=== PATIENT | female | born 1935 | race Caucasian/White ===

== ENCOUNTER 2018-03-21 12:14 | Day surgery (SDC) | payer MEDICARE, OTHER ==
--- NOTE | 2018-03-13 13:59 | HP ---
AMENDED REPORT NOW INCLUDES DESIGNATED COSIGNER CC: Dr. Santana * PREOPERATIVE HISTORY AND PHYSICAL: DATE OF ADMISSION/SURGERY: 03/21/18 This patient is scheduled for same-day surgery admission by Dr. Noyola on 03/21. DATE OF EXAMINATION: 03/10/18 ATTENDING SURGEON: Rm Noyola MD * (dictated by Kimberly Zuniga NP) CHIEF COMPLAINT: Hernia. HISTORY OF PRESENT ILLNESS: The patient is an 82-year-old female recently evaluated by Dr. Noyola. She has a history of open appendectomy at age 7 and incisional hernia, suspected on annual [employer] exam by Dr. Whatley in October or November of this year. She was sent for CT of the abdomen and was noted to have Reese's-type hernia involving the cecum. She denies abdominal pain or nausea, vomiting or constipation. She has a good appetite. Dr. Noyola has reviewed the findings and examined the patient and discussed the findings with her and has recommended laparoscopic incisional hernia repair with mesh as a same-day surgery procedure. He discussed the nature of the surgical procedure, the rationale for the procedure, the relevant risks, benefits and alternatives , and today I reviewed the typical postoperative care and recovery. The patient has had a chance to ask questions and stated that she understands the information and is satisfied with the answers given to her questions. She will sign surgical consent on the day of surgery. PAST MEDICAL HISTORY: Is significant for hypertension; renal insufficiency with chronic right hydronephrosis and a history of kidney stones; hyperlipidemia and osteoarthritis. She also has a history of sinus arrhythmia with the most recent EKG in January [address] Santana's office. PAST SURGICAL HISTORY: Appendectomy at age 7, D and C, excision of breast cyst , and tonsillectomy. MEDICATIONS: 1. Metoprolol ER 25 mg p.o. daily in the morning. 2. Lisinopril 10 mg p.o. daily in the morning. 3. Hydrochlorothiazide 25 mg p.o. daily in the morning. 4. Vitamin D3 1000 units daily. ALLERGIES: SULFA ANTIBIOTICS cause rash. FAMILY HISTORY: Mother had a history of deep vein thrombosis and hypertension. Father had heart disease. No known anesthesia complications or bleeding tendencies. SOCIAL HISTORY: She is and is a nonsmoker and denies the use of alcohol or other substances. REVIEW OF SYSTEMS: Constitutional: No fevers or chills. No excessive fatigue or weight loss. Respiratory: No dyspnea on exertion. No chronic cough. Cardiovascular: No history of myocardial infarction; no chest pain or palpitations or pressure; she has a history of sinus arrhythmia and I reviewed an EKG from Dr. Santana's office in January 2018; she had an irregular heartbeat on exam today and an EKG will be done with her preadmission testing. Gastrointestinal: No nausea, vomiting, diarrhea, constipation or abdominal pain. No blood in the stool. Genitourinary: No dysuria. She does have a history of kidney stones and chronic right hydronephrosis with renal insufficiency. Musculoskeletal: Osteoarthritis in most joints, but she remains active around her home. Neurologic: No headache or blurred vision. No focal weakness or numbness. General: No previous anesthesia complications. No history of deep vein thrombosis or pulmonary embolism. No bleeding tendencies and has never received a blood transfusion. No history of MRSA. PHYSICAL EXAMINATION GENERAL SURVEY: The patient is an 83-year-old female, well developed, well nourished in no acute distress. VITAL SIGNS: Height 67 inches, weight 190 pounds, body mass index 29.8. Blood pressure 144/86, pulse 60 and irregular, respiratory rate 18, temperature 97.3 tympanic. HEENT: Benign. NECK: Supple. No lymphadenopathy. Trachea midline. LUNGS: Breath sounds bilaterally clear and equal. HEART: Irregularly irregular. ABDOMEN: Obese, soft, active bowel sounds, nontender throughout. Scar in right lower quadrant, no palpable masses. No organomegaly. PELVIC AND RECTAL: Exam deferred. EXTREMITIES: Warm without edema or skin ulceration. NEUROLOGIC: Alert and oriented x3. Steady gait. SKIN: Warm, dry, intact. IMPRESSION: Incisional hernia, right lower quadrant of the abdomen. PLAN: Same-day surgery admission to Dr. Noyola' service on 03/21/18 for laparoscopic incisional repair of the right lower quadrant abdominal hernia with mesh. KRISTI ZUNIGA NP [id number]/[facility] #: [id number] DIETER
[~2018-03-21 12:14] MED LIST: Buffered Lidocaine 0.9% SYRIN* 5 ML/SYR SYRINGE INTRADERM ONE; Dexamethasone IV* 4 MG/ML 1 ML (4 MG) IV SLOW PU ONE; Famotidine IV* 10 MG/ML 2 ML (20 mg) IV ONE; Lactated Ringers 1000 ML Bag* 1,000 ML IV SCH
[2018-03-21] MEDS ORDERED: Heparin VIAL(*) 5000 UNITS/ML VIAL (FIVE THOUSAND) ONE (12:52)
[2018-03-21] MEDS ORDERED: Famotidine IV* 10 MG/ML 2 ML (20 mg) ONE (12:52)
[2018-03-21] MEDS ORDERED: Dexamethasone IV* 4 MG/ML 1 ML (4 MG) ONE (12:52)
[2018-03-21] MEDS ORDERED: ceFAZolin 2 GM PREMIX in ORs 2 GM/50 ML BAG IVPB ONE (12:53)
[2018-03-21] MEDS ORDERED: Bupivacaine 0.25% W/EPI* 10 ML SDV ONE (14:03)
[2018-03-21] MEDS ORDERED: Sugammadex * 200 MG/2 ML VIAL IV PUSH ONE (14:08)
[2018-03-21] MEDS ORDERED: fentaNYL* 50 MCG/ML 2 ML VIAL (100 MCG VIAL) ONE (14:12)
[2018-03-21] MEDS ORDERED: Succinylcholine* 20 MG/ML 10 ML VIAL ONE (14:12)
[2018-03-21] MEDS ORDERED: Propofol* 10 MG/ML 20 ML BTL ONE (14:12)
[2018-03-21] MEDS ORDERED: Lidocaine 2% PF * 5 ML VIAL ONE (14:12)
[2018-03-21] MEDS ORDERED: Rocuronium* 10 MG/ML VIAL ONE (14:14)
[2018-03-21] MEDS ORDERED: Naloxone* 0.4 MG/ML 1 ML VIAL IV PRN (15:43)
[2018-03-21] MEDS ORDERED: DiMENhydriNATE IV* 50 MG/ML VIAL IV PUSH PRN (15:43)
[2018-03-21] MEDS ORDERED: fentaNYL* 50 MCG/ML 2 ML VIAL (100 MCG VIAL) IV PRN (15:43)
[2018-03-21] MEDS ORDERED: Ondansetron INJ* 2 MG/ML VIAL ONE (16:23)
[2018-03-21] MEDS ORDERED: Ketorolac INJ* 30 MG/ML 1 ML VIAL ONE (16:23)
[2018-03-21 18:21] VITALS: BP 140/76
--- NOTE | 2018-03-21 22:03 | OP ---
DATE OF OPERATION: 03/21/18 - [facility] DATE OF : 33 SURGEON: Rm Noyola MD SCRAP DROP CRANE OPERATOR: Paulina Cruz NP ANESTHESIOLOGIST: Dr. Richards. ANESTHESIA: General endotracheal. PRE-OP DIAGNOSIS: Ventral incisional hernia. POST-OP DIAGNOSIS: Right inguinal hernia. OPERATIVE PROCEDURE: Laparoscopic preperitoneal repair of right inguinal hernia with mesh via transabdominal approach (MICHELINE). ESTIMATED BLOOD LOSS: Minimal. IV FLUIDS: Crystalloids. SPECIMENS: None. DRAINS: None. COMPLICATIONS: None. COUNTS: The instrument, needle, and sponge counts were correct. DESCRIPTION OF PROCEDURE: The patient was brought to the operating room and placed on the table supine. Sequential compression devices were placed on both lower extremities. General anesthesia was administered. Padilla catheter was placed. She was positioned and padded appropriately. She received appropriate intravenous antibiotics. She was prepped and draped in the usual sterile fashion. A time-out was performed. Local anesthetic was infiltrated into the skin and soft tissue prior to making each incision. Pneumoperitoneum was established via a transumbilical placement of the Veress needle and after insufflating the abdomen with carbon dioxide to a pressure of 15 mmHg, 5-mm trocar was placed in the left upper quadrant laterally. Inspection with laparoscope revealed extensive adhesions of omentum to the abdominal wall with no evidence of adhesions in the left lateral midabdomen where a second 5-mm trocar was placed and then inspection in the left lower quadrant found a clear space where a third 5-mm trocar was placed. Using a combination of sharp dissection and blunt dissection as well as LigaSure , an adhesiolysis was performed to completely free the anterior abdominal wall of the omental adhesions. There was then identified an indirect right inguinal hernia. There was no evidence of incisional hernia at the patient's prior appendectomy site. It was determined that this would be repaired using a transabdominal preperitoneal approach to the inguinal hernia. A 4th 5 mm size trocar was placed in the infraumbilical midline and the initial 5-mm trocar in the left upper quadrant was replaced with a 12-mm trocar in order to place the mesh. First, the peritoneum was scored above the inguinal region transversely and the preperitoneal dissection was performed bluntly dissecting out the sac and identifying the round ligament, the uterus, as well as the inferior epigastric vessels on the right side. The round ligament was divided as it exited through the groin. The epigastric vessels were preserved. The dissection proceeded laterally to the anterior superior iliac spine and medially to the pubic symphysis. After completing the dissection, a repair was performed with a piece of polypropylene mesh. This was cut from a 6 x 6 inch piece of mesh and measured 4 x 6 inches. The mesh was trimmed at the corners in order to customize the sit of the mesh to the area of dissection while it was in position. After assuring good coverage of the hernia space, the mesh was secured to Gamal's ligament with a capture device as well as to the anterior abdominal wall medially and laterally staying well above the inguinal ligament. Then, the peritoneum was closed with serial placement of endoscopic clips until the mesh was completely covered. Next, the carbon dioxide was released from the abdomen and the ports were removed under direct visualization. The incisions were all closed with 4-0 Monocryl in a subcuticular fashion. Steri-Strips were applied. The patient tolerated the procedure well. She was extubated and transferred to Recovery Room in stable condition. [id number]/[facility] #: [id number] DIETER
== END 2018-03-21 18:54 | disposition home or self-care (01) ==
LOC: OR 12:14
PROVIDERS: ATTEND Surgery
DX: K40.90 Unilateral inguinal hernia, without obstruction or gangrene, not specified as recurrent (principal); I10 Essential (primary) hypertension; E78.5 Hyperlipidemia, unspecified; M19.90 Unspecified osteoarthritis, unspecified site
CPT/HCPCS: 36415; 84132; C1781; J0330; J0690; J1100; J1644; J1885; J2405; J2704; J3010

== ENCOUNTER 2018-07-12 09:40 | Observation (INO) | payer MEDICARE, OTHER ==
--- NOTE | 2018-07-12 10:24 | ED ---
Back Pain - HPI Summary HPI Summary: Pt is an 83 y/o F presenting to the ED with a chief complaint of R flank pain onset 07/10/18. The pain is located mainly in her R lower back, is intermittent in severity, and she reports associated urinary frequency, urgency, decreased appetite, and diffuse abd pain. She also reports some rhinorrhea, congestion, sore throat, and productive cough. She denies dysuria or burning with urination, as well as fever, nausea, vomiting , diarrhea, constipation, CP, SOB, rash, edema, AGUILAR, or weakness. She has hx of a prolapsed bladder, and she sees Dr. Benavides. - History of Current Complaint Chief Complaint: EDFlankPain Stated Complaint: BACK/FLANK PAIN PER PT Time Seen by Provider: 07/12/18 09:58 Hx Obtained From: Patient Onset/Duration: Gradual Onset, Lasting Days, Still Present Onset/Duration: Started Days Ago, Still Present Timing: Constant, Lasting Days Back Pain Location: Is Diffuse - R lower back to R lower abd Severity Initially: Moderate Severity Currently: Moderate Pain Intensity: 8 Pain Scale Used: 0-10 Numeric Character: Aching Aggravating Symptom(s): Nothing Alleviating Symptom(s): Nothing Associated Signs And Symptoms: Positive: Abdominal Pain, Flank Pain. Negative: Swelling, Fever, Weakness - Allergies/Home Medications Allergies/Adverse Reactions: Allergies Allergy/AdvReac Type Severity Reaction Status Date / Time Sulfa (Sulfonamide Allergy Rash Verified 07/12/18 15:43 Antibiotics) ENVIRONMENTAL/SEASONAL Allergy Sneezing Uncoded 07/12/18 15:43 ALLERGIES PMH/Surg Hx/FS Hx/Imm Hx Previously Healthy: Yes Endocrine/Hematology History: Denies: Hx Diabetes, Hx Thyroid Disease Cardiovascular History: Reports: Hx Coronary Artery Disease - CHOLESTEROL CONTROL WITH MEDICATION, Hx Hypertension, Other Cardiovascular Problems/ Disorders - Hyprelipidemia Denies: Hx Congestive Heart Failure Respiratory History: Denies: Hx Asthma, Hx Chronic Obstructive Pulmonary Disease (COPD), Other Respiratory Problems/Disorders GI History: Reports: Hx Hiatal Hernia, Other GI Disorders - Appendectomy-age 7 Denies: Hx Ulcer History: Reports: Hx Kidney Stones - BILATERAL SIDES, RIGHT GREATER THAN LEFT , Other Problems/Disorders - Stress incontinence Denies: Hx Renal Disease Musculoskeletal History: Reports: Hx Arthritis - knees, generalized, Other Musculoskeletal History - Incisional hernia, lower back discomfort Sensory History: Reports: Hx Cataracts - Bilateral extractions, Hx Contacts or Glasses - GLASSES Denies: Hx Glaucoma, Hx Hearing Aid Opthamlomology History: Reports: Hx Cataracts - Bilateral extractions, Hx Contacts or Glasses - GLASSES Denies: Hx Glaucoma Neurological History: Denies: Other Neuro Impairments/Disorders Psychiatric History: Reports: Hx Anxiety - situational anxiety - Cancer History Hx Chemotherapy: No Hx Radiation Therapy: No - Surgical History Surgery Procedure, Year, and Place: Appendectomy- age 7. Tonsillectomy. D&C. Colposcopy. Colonoscopy x2 Hx Anesthesia Reactions: No Infectious Disease History: No Infectious Disease History: Denies: Hx Clostridium Difficile, Hx Hepatitis, Hx Human Immunodeficiency Virus (HIV), Hx of Known/Suspected MRSA, Hx Shingles, Hx Tuberculosis, Hx Known/ Suspected VRE, Hx Known/Suspected VRSA, History Other Infectious Disease, Traveled Outside the [place] in Last 30 Days - Family History Known Family History: Negative: Cardiac Disease - Social History Alcohol Use: None Hx Substance Use: No Substance Use Type: Reports: None Hx Tobacco Use: No Smoking Status (MU): Never Smoked Tobacco Review of Systems Negative: Fever Positive: Sore Throat, Nasal Discharge Negative: Chest Pain Positive: Cough. Negative: Shortness Of Breath Positive: Abdominal Pain. Negative: Vomiting, Diarrhea, Nausea, Other - constipation Positive: frequency, flank pain, urgency. Negative: burning, dysuria Negative: Edema Negative: Rash Negative: Headache, Weakness All Other Systems Reviewed And Are Negative: Yes Physical Exam - Summary Physical Exam Summary: Constitutional: Well-developed, Well-nourished, Alert. (-) Distressed Skin: Warm, Dry HENT: Normocephalic; Atraumatic Eyes: Conjunctiva normal Neck: Musculoskeletal ROM normal neck. (-) JVD, (-) Stridor, (-) Tracheal deviation Cardio: Rhythm regular, rate normal, Heart sounds normal; Intact distal pulses; The pedal pulses are 2+ and symmetric. Radial pulses are 2+ and symmetric. (-) Murmur Pulmonary/Chest wall: Effort normal. (-) Respiratory distress, (-) Wheezes, (-) Rales Abd: Soft, (+) R CVA tenderness and RLQ tenderness, (-) Distension, (-) Guarding , (-) Rebound Musculoskeletal: (-) Edema Lymph: (-) Cervical adenopathy Neuro: Alert, Oriented x3 Psych: Mood and affect Normal Triage Information Reviewed: Yes Vital Signs On Initial Exam: Initial Vitals Temp Pulse Resp BP Pulse Ox 98.9 F 97 19 176/88 97 07/12/18 09:50 07/12/18 09:50 07/12/18 09:50 07/12/18 09:50 07/12/18 09:50 Vital Signs Reviewed: Yes Diagnostics - Vital Signs Vital Signs Temp Pulse Resp BP Pulse Ox 07/12/18 09:50 98.9 F 97 19 176/88 97 - Laboratory Result Diagrams: 07/12/18 10:21 07/12/18 10:21 Lab Statement: Any lab studies that have been ordered have been reviewed, and results considered in the medical decision making process. - CT CT a/p CT Interpretation Completed By: Radiologist Summary of CT Findings: 1. While the magnitude of severe RIGHT hydroureteronephrosis of the RIGHT kidney appears chronic the perinephric and periureteral inflammatory stranding is new raising concern for potential pyelonephritis. No obstructing stone or neoplastic lesion evident. The pessary in the vagina may contribute to obstruction of the RIGHT ureterovesicular junction. 2. Pelvic ultrasound suggested for further assessment of the LEFT ovarian lesion. 3. Chest CT suggested for further assessment given partial visualization of a RIGHT middle lobe nodule. ED physician has reviewed this report. Re-Evaluation - Re-Evaluation 1st re-eval Re-Evaluation Time: 12:15 Change: Unchanged Comment: Results discussed w/ patient, sepsis fluids ordered. Back Pain Course/Dx - Course Course Of Treatment: Pt is an 83 y/o F presenting to the ED with a chief complaint of R-sided flank pain that is intermittent in severity and has lasted since 07/10/18. She reports associated urinary frequency, urgency, decreased appetite, and diffuse R-sided abd pain. She denies dysuria or burning with urination, as well as fever, nausea, vomiting, diarrhea, constipation, CP, SOB, rash, edema, AGUILAR, or weakness. Upon physical exam, the pt has RLQ tenderness and R CVA tenderness. The pt's UA shows a UTI that I started the pt on Rocephin for. CT a/p shows: 1. While the magnitude of severe RIGHT hydroureteronephrosis of the RIGHT kidney appears chronic the perinephric and periureteral inflammatory stranding is new raising concern for potential pyelonephritis. No obstructing stone or neoplastic lesion evident. The pessary in the vagina may contribute to obstruction of the RIGHT ureterovesicular junction. 2. Pelvic ultrasound suggested for further assessment of the LEFT ovarian lesion. 3. Chest CT suggested for further assessment given partial visualization of a RIGHT middle lobe nodule. Pts bloodwork shows WBC of 11.4, and RBC of 5.16. Her chemistry shows potassium of 3.2, chloride of 99, BUN/ Creatinine ratio of 20.8, bilirubin of 1.20, CRP of 80.94, lipase of <10, and a lactic acid of 2.4. Sepsis fluids ordered. I spoke with Dr. Benavides who recommended NPO and a ureter stent that will be placed after 5pm. I then spoke with Dr. Sampson who [place] [facility] [place]el[place] and [place]. - Diagnoses Provider Diagnoses: Pyelonephritis, Sepsis Discharge - Sign-Out/Discharge Documenting (check all that apply): Patient Departure - Discharge Plan Condition: Stable Disposition: ADMITTED TO [facility] - Billing Disposition and Condition Condition: STABLE Disposition: Admitted to [facility] - Attestation Statements Document Initiated by Scribe: Yes Documenting Scribe: Gracie Wilde Provider For Whom Kimmy is Documenting (Include Credential): Adele Mendoza MD. Scribe Attestation: IGracie, scribed for Adele Quick MD. on 07/12/18 at 2150. Scribe Documentation Reviewed: Yes Provider Attestation: The documentation as recorded by the scribe, Gracie Wilde accurately reflects the service I personally performed and the decisions made by me, Adele Quick MD. Status of Scribe Document: Viewed Consult Consult: 1310 - I spoke with Dr. Benavides about the pt's present condition. He stated she should stay NPO, and they will put a stent in after 5pm. I spoke with Dr. Sampson at 1318 about the pt's condition who will be accepting the [place] [facility] [place]
[2018-07-12 10:44] LABS: Urine Appearance Turbid; Urine Bacteria Absent (Absent); Urine Bilirubin Negative (Negative); Urine Blood 1+ (Negative); Urine Color Amber; Urine Glucose 1+(50 mg/dL) (Negative); Urine Ketones Trace (Negative); Urine Nitrite Negative (Negative); Urine Protein 3+(>=500 mg/dL) (Negative); Urine Red Blood Cell 3+(>10/hpf) (Absent); Urine Specific Gravity 1.023 (1.010-1.030); Urine Squamous Epithelial Cell Present (Absent); Urine Urobilinogen Negative (Negative); Urine White Blood Cell 3+(>20/hpf) (Absent)
[2018-07-12] MEDS ORDERED: cefTRIAXone(*) 1 GM in NS 0.9% 50 ML* 50 ML IVPB ONE (11:10)
[2018-07-12 11:34] LABS: ALT 22 U/L (7-52); AST 23 U/L (13-39); Albumin 4.1 g/dL (3.2-5.2); Albumin/Globulin Ratio 1.2 (1-3); Alkaline Phosphatase 97 U/L (34-104); Anion Gap 13 mmol/L (2-11); BUN/Creatinine Ratio 20.8 (8-20); Blood Urea Nitrogen 15 mg/dL (6-24); C Reactive Protein 80.94 mg/L (<8.01); CO2 Carbon Dioxide 26 mmol/L (22-32); Calcium 9.6 mg/dL (8.6-10.3); Chloride 99 mmol/L (101-111); EGFR African American 93.4 (>60); EGFR Non-African American 77.2 (>60); Globulin 3.3 g/dL (2-4); Glucose 166 mg/dL (70-100); Potassium 3.2 mmol/L (3.5-5.0); Sodium 138 mmol/L (135-145); Total Protein 7.4 g/dL (6.4-8.9)
[2018-07-12 11:45] LABS: ABS Basophils 0 10^3/ul (0-0.2); ABS Eosinophils 0 10^3/ul (0-0.6); ABS Lymphocytes 0.9 10^3/ul (1.0-4.8); ABS Monocytes 0.8 10^3/ul (0-0.8); ABS Neutrophils 9.7 10^3/ul (1.5-7.7); ABS Nucleated RBC 0 10^3/ul; Eosinophil % 0.1 %; Hematocrit 44 % (35-47); Hemoglobin 14.9 g/dL (12.0-16.0); Lymphocyte % 7.5 %; Mean Corpuscular HGB Conc 34 g/dL (31-36); Mean Corpuscular Hemoglobin 29 pg (27-31); Mean Corpuscular Volume 86 fL (80-97); Mean Platelet Volume 9.1 fL (7.4-10.4); Nucleated Red Blood Cells % 0.3; Platelet Count 248 10^3/uL (150-450); Red Blood Count 5.16 10^6 /uL (3.70-4.87); Red Cell Distribution Width 13 % (10.5-15); White Blood Count 11.4 10^3/uL (3.5-10.8)
[2018-07-12] MEDS ORDERED: ED Piperacillin/Tazobac 3.375 3.375 GM/100 ML PREMIX.SET IVPB ONE (12:01)
[2018-07-12] MEDS ORDERED: Potassium Chlor TAB* 20 MEQ TAB.ER PO ONE (12:02)
[2018-07-12] MEDS: NS 0.9% 1000 ML** 1,000 ML IV.FLUID IV ONE ×2 (12:29→13:59)
[2018-07-12] MEDS ORDERED: Zosyn 3.375 GM IV - ED ONCE IVPB ONE ×2 (13:00)
[2018-07-12] MEDS ORDERED: Ondansetron INJ* 2 MG/ML VIAL IV PRN ×2 (14:42→18:05)
[2018-07-12] MEDS ORDERED: Acetaminophen TAB* 325 MG PO PRN (14:42)
[2018-07-12] MEDS: Lactated Ringers 1000 ML Bag* 1,000 ML IV SCH (15:20)
[2018-07-12] MEDS ORDERED: fentaNYL* 50 MCG/ML 2 ML VIAL (100 MCG VIAL) ONE (16:16)
[2018-07-12] MEDS ORDERED: Dexamethasone IV* 4 MG/ML 1 ML (4 MG) ONE (16:16)
[2018-07-12] MEDS ORDERED: Ondansetron INJ* 2 MG/ML VIAL ONE (16:16)
[2018-07-12] MEDS ORDERED: Propofol* 10 MG/ML 20 ML BTL ONE (16:16)
[2018-07-12] MEDS ORDERED: Midazolam* 1 MG/ML 5 ML VIAL (5 MG) ONE (16:16)
[2018-07-12] MEDS ORDERED: Lidocaine 2% PF * 5 ML VIAL ONE (16:16)
[2018-07-12] MEDS ORDERED: Iohexol 180 (CONTRAST) 10 ML SDV IV ONE (17:14)
--- NOTE | 2018-07-12 17:16 | HP ---
CC: Dr. Santana; Dr. Juan Manuel Benavides * ADMISSION HISTORY AND PHYSICAL: DATE OF ADMISSION: 07/12/18 PRIMARY CARE PROVIDER: Dr. Santana. MY ATTENDING WHILE IN THE HOSPITAL: Dr. Linda Sampson.* (DICTATED BY ARTEM WOODS) CONSULTING UROLOGIST: Dr. Juan Manuel Benavides. CHIEF COMPLAINT: Urinary frequency, right flank pain x2 days. HISTORY OF PRESENT ILLNESS: Ms. Pablo is an 83-year-old female with past medical history significant for hypertension, chronic right-sided hydronephrosis , nephrolithiasis as well as well bladder prolapse, who presents to the emergency department with 2 days of extreme urinary frequency and right-sided flank pain, which she rates as severe and radiating down into her groin. The patient states this feels as when she previously had a renal stone. The patient denies blood in her urine. The patient states her urine is more white than normally it is. The patient states that she has been urinating a small amount each time and estimates she does not have a decrease in the overall frequency of her urination. The patient denies nausea, vomiting, fevers, chills , chest pain, shortness of breath. The patient denies diarrhea, blood in her stools. The patient denies dizziness on standing. The patient has not had a UTI in several years. The patient states that she has a pessary inserted, but that she did not know that was still present, but believes that she had it removed by her [facility] approximately 4 months ago. She states she usually has it removed about every 4 months. The patient has undergone numerous surgeries without complications in the past. The patient has chronic swelling in her legs , which is unchanged from her history. The patient had an elevated lactic acid and due to concern for pyelonephritis with sepsis, we were asked to evaluate the patient for admission to the hospital. PAST MEDICAL HISTORY: Hypertension, chronic right-sided hydronephrosis, hyperlipidemia, history of nephrolithiasis, obstructive sleep apnea. PAST SURGICAL HISTORY: Right inguinal hernia repair in 2018, dilation and curettage, appendectomy, breast lump excision. MEDICATIONS: 1. Metoprolol 25 mg p.o. daily. 2. Lisinopril 10 mg p.o. daily. 3. Vitamin D 1000 units p.o. daily. 4. Hydrochlorothiazide 25 mg p.o. daily. 5. Potassium chloride 1 tab p.o. q.a.m., unknown dosage. ALLERGIES: Possible allergy to SULFA ANTIBIOTICS. FAMILY HISTORY: The patient's mother in her 90s of blood clot. The patient's father of an ND at age 86. The patient has a brother, who has no known medical history. SOCIAL HISTORY: The patient smoked a very few cigarettes long time ago. The patient denies ever abusing alcohol, has never used illicit drugs. 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 The patient is , has 2 sons. Her surrogate decision maker will be her , Urban Pablo or her sons, Abundio or Juan Pablo. REVIEW OF SYSTEMS: A 14-point review of systems was reviewed and is negative except as above in the HPI. PHYSICAL EXAMINATION GENERAL: The patient is an 83-year-old female, who appears younger than stated age and sitting comfortably in bed, in no acute distress. VITAL SIGNS: At the time of evaluation, temperature 98.9, pulse rate 91, respiratory rate 19, oxygen saturation 94% on room air, blood pressure 135/78. HEENT: Head: Normocephalic, atraumatic. Sclerae anicteric. No conjunctival injection. Nasal mucosa moist. Oral mucosa moist. No pharyngeal erythema, discharge, or exudate. NECK: Supple, nontender. No lymphadenopathy. No carotid bruits auscultated. No JVD. RESPIRATORY: Clear to auscultation bilaterally. No wheezes, rales, or rhonchi. Good air exchange bilaterally. CARDIAC: Regular rate and rhythm. No clicks, murmurs, gallops, or rubs. Pulses are 2+ in the bilateral dorsalis pedis, posterior tibialis, and radial areas. ABDOMEN: Soft, nondistended. Tenderness to palpation in the right lower quadrant. GENITOURINARY: Right-sided CVA tenderness. No suprapubic tenderness. NEURO: Cranial nerves II through XII intact. No focal deficits. Alert and oriented x3. PSYCHIATRIC: Pleasant and cooperative. SKIN: Clean, dry, and intact. No rash. DIAGNOSTIC STUDIES/LAB DATA: White blood cell count 11.4, hemoglobin 14.9, platelet count 248. Sodium 138, potassium 3.2, chloride 99, carbon dioxide 26, anion gap 13, BUN 15, creatinine 0.72, glucose 166. Lactic acid 2.4, repeat 1.2. Calcium 9.3. Bilirubin 1.3, AST 23, ALT 22, alkaline phosphatase 97. CRP 80.94. Protein 7.4, albumin 4.1, globulin 3.3. Lipase less than 10. Urine is cele, turbid, 3+ protein, positive ketones, positive blood, positive leukocyte esterase, negative nitrites, 3+ white blood cells, 3+ red blood cells, squamous epithelial cells and glucose present, bacteria absent. Studies: Abdomen and pelvis CT read as while the magnitude of severe hydronephrosis of the right kidney appears chronic, the perinephric and periureteral inflammatory stranding is new raising concern for potential pyelonephritis. No obstructing stone or neoplastic lesion evident. The pessary in the vagina may contribute to obstruction of the right ureterovesical junction. Pelvic ultrasound is suggested for further assessment of the left ovarian lesion. Chest CT suggested further assessment given partial visualization of the right middle lobe nodule. ASSESSMENT AND PLAN: Impression: Ms. Pablo is an 83-year-old female with past medical history significant for hypertension, chronic right-sided hydronephrosis , nephrolithiasis, who presents to the emergency department with 2 days of right - sided flank pain as well as severe urinary frequency, who was found to have an elevated lactic acid, elevated white blood cell count and CT evidence of pyelonephritis, who will be admitted to the hospital for stent insertion for her hydronephrosis and pyelonephritis treatment with antibiotics. 1. Pyelonephritis. The patient has a history of urinary tract infection with no stones. The patient has an elevated white blood cell count, elevated lactic acid, which has now normalized. The patient has a urinalysis consistent with infection. The patient was given a dose of Zosyn in the emergency department. The patient will be continued on ceftriaxone at this time. The patient has no fevers. The patient's tachycardia is improved with fluids. The patient's blood pressure is within normal limits. 2. Severe sepsis. The patient meets criteria for severe sepsis with an underlying urinary tract infection as well as elevated lactic acid. The patient is currently perfusing well. The patient's vital signs are within normal limits. The patient's repeat lactic acid is within normal limits. Please consider this to be the patient's severe sepsis reassessment note. 3. Chronic hydronephrosis. 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 This may be exacerbated by the presence of her pessary. The patient will not have her pessary removed at this time as she will have a stent placed for her right hydronephrosis given her pyelonephritis. The patient will be seen in consultation by Urology. The patient will be n.p.o. for this procedure. The patient has an RCRI of 0 and is a low risk for this low-risk procedure. The patient is medically optimized at this time with no further testing. 4. Hypertension. Continue the patient's home hypertensive medications tomorrow morning as they are normally scheduled. 5. Pulmonary nodule. The patient has a pulmonary nodule noted on the CT scan. The patient should follow up with her primary care provider for monitoring outpatient. 6. Ovarian cyst. The patient has a stable ovarian cyst. The patient should follow up with [facility] for the appropriateness of further evaluation of this cyst. 7. DVT prophylaxis: The patient will have heparin subcu. 8. FEN: The patient will be n.p.o. at this time. The patient will have a regular unrestricted diet after that time. 9. Code status: The patient would like to be a full code. TIME SPENT: Approximately 60 minutes was spent on the admission of this patient , 30 of which was spent [id number] with the patient obtaining history and physical and discussing treatment plan. This plan was discussed with my attending, Dr. Linda Sampson, and she is in agreement. ARTEM WOODS [id number]/CPS #: [id number] DIETER
[2018-07-12] MEDS ORDERED: Phenylephrine 40 MCG/ML SYRINGE ONE (17:49)
[2018-07-12] MEDS ORDERED: Naloxone* 0.4 MG/ML 1 ML VIAL IV PRN (18:05)
[2018-07-12] MEDS ORDERED: fentaNYL* 50 MCG/ML 2 ML VIAL (100 MCG VIAL) IV PRN (18:05)
[2018-07-12] MEDS: Heparin VIAL(*) 5000 UNITS/ML VIAL (FIVE THOUSAND) SUBCUT SCH (20:56)
--- NOTE | 2018-07-12 23:26 | OP ---
DATE OF OPERATION: 07/12/18 - ROOM #410 DATE OF : 33 SURGEON: Juan Manuel Benavides MD ANESTHESIOLOGIST: Dr. González Treviño. ANESTHESIA: General. PRE-OP DIAGNOSES: 1. Urinary tract infection. 2. Chronic right ureterovesical junction obstruction. 3. Severe right hydroureteronephrosis due to above. POST-OP DIAGNOSES: 1. Urinary tract infection. 2. Chronic right ureterovesical junction obstruction. 3. Severe right hydroureteronephrosis due to above. OPERATIVE PROCEDURE: 1. Cystoscopy. 2. Right retrograde pyelography. 3. Right ureteral stent insertion 8-Puerto Rican. INDICATION FOR PROCEDURE: Mrs. 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 The condition had been asymptomatic and did not require any treatment. She also has history of renal calculus disease. The patient presented to the emergency room today with 1-day history of right flank pain radiating to the right lower quadrant. She had a low- grade fever. Work-up in the emergency room showed moderate elevation of her white count, infected urine, and an elevated C-reactive protein and slight elevation of the lactic acid. Because of the concern about the urinary tract infection associated with the right flank pain and the severe hydronephrosis and to avoid any pyonephrosis, decision was made to urgently place a right ureteral stent. The patient is known to have a pessary for pelvic relaxation and prolapse. PATHOLOGY AT CYSTOSCOPY: There was distortion of the base of the bladder and the trigone because of the chronic pessary. There was also a moderate degree of edema and hyperemia of the posterior bladder neck and the trigone. There was some difficulty locating the right ureteral orifice due to the distortion of the anatomy from the pessary. Upon right retrograde pyelography, there was severe hydroureter with 360 degree loop of the proximal ureter and severe right hydronephrosis. The urine from the right kidney did not look infected. DESCRIPTION OF PROCEDURE: After successful general anesthesia, the patient was placed in the lithotomy position and was prepped and draped for a cystoscopy. Cystoscopy was performed. The bladder was inspected and the above findings were noted. After several attempts, the right ureteral orifice was identified and a glidewire was introduced into the right orifice and was negotiated through the tortuosity of the ureter and successfully introduced in the renal pelvis. The tortuosity of the ureter could not be straightened up with the stiff portion of the guidewire. The open-ended catheter was then fed on top of the glidewire and positioned in the proximal end of the ureteral loop. The glidewire was then removed and the guidewire introduced inside the open-ended catheter and successfully positioned in the renal pelvis. A size 8-Puerto Rican stent , 32-cm long was then fed on top of the guidewire and successfully positioned with the proximal end coiling in the renal pelvis and the distal end coiling inside the bladder. There was noted drainage of contrast from the kidney and no extravasation. A 16-Puerto Rican Padilla catheter was placed. The patient tolerated the procedure well and left the operating room in good condition. [id number]/CPS #: [id number] DIETER
[2018-07-13] MEDS: Heparin VIAL(*) 5000 UNITS/ML VIAL (FIVE THOUSAND) SUBCUT SCH (06:22)
[2018-07-13 07:20] LABS: BUN/Creatinine Ratio 23.5 (8-20); Calcium 8.6 mg/dL (8.6-10.3); EGFR Non-African American 114.9 (>60); Magnesium 1.9 mg/dL (1.9-2.7); Potassium 3.9 mmol/L (3.5-5.0)
[2018-07-13] MEDS: Lactated Ringers 1000 ML Bag* 1,000 ML IV SCH (07:34)
[2018-07-13 08:03] VITALS: BP 134/58
[2018-07-13 08:04] LABS: ABS Basophils 0 10^3/ul (0-0.2); ABS Eosinophils 0 10^3/ul (0-0.6); ABS Lymphocytes 0.6 10^3/ul (1.0-4.8); ABS Monocytes 0.2 10^3/ul (0-0.8); ABS Neutrophils 5.4 10^3/ul (1.5-7.7); ABS Nucleated RBC 0 10^3/ul; Eosinophil % 0 %; Hematocrit 40 % (35-47); Hemoglobin 13.6 g/dL (12.0-16.0); Lymphocyte % 9.4 %; Mean Corpuscular HGB Conc 34 g/dL (31-36); Mean Corpuscular Hemoglobin 29 pg (27-31); Mean Corpuscular Volume 86 fL (80-97); Mean Platelet Volume 9.1 fL (7.4-10.4); Nucleated Red Blood Cells % 0; Platelet Count 227 10^3/uL (150-450); Red Blood Count 4.65 10^6 /uL (3.70-4.87); Red Cell Distribution Width 13 % (10.5-15); White Blood Count 6.1 10^3/uL (3.5-10.8)
[2018-07-13] MEDS ORDERED: Metoprolol Succinate XL TAB* 25 MG PO SCH (09:00)
[2018-07-13] MEDS ORDERED: Hydrochlorothiazide TAB* 25 MG PO SCH (09:00)
[2018-07-13] MEDS ORDERED: Cholecalciferol TAB* 1000 UNITS PO SCH (09:00)
[2018-07-13] MEDS ORDERED: Lisinopril TAB* 10 MG PO SCH (09:00)
[2018-07-13] MEDS ORDERED: Potassium Chloride LIQUID 20 MEQ/15 ML PO SCH (09:00)
[2018-07-13] MEDS ORDERED: Cefdinir cap* 300 MG CAP PO ONE (11:17)
[2018-07-13] MEDS ORDERED: cefTRIAXone(*) 1 GM in NS 0.9% 50 ML* 50 ML IVPB SCH (12:00)
--- NOTE | 2018-07-14 03:10 | DS ---
CC: Dr. Santana; Dr. Benavides; Dr. Whatley * DISCHARGE SUMMARY: DATE OF ADMISSION: 07/12/18 DATE OF DISCHARGE: 07/13/18 PRIMARY CARE PROVIDER: Dr. Santana. UROLOGIST: Dr. Benavides. ROAD FREIGHT CONDUCTOR: Dr. Whatley. DISCHARGE DIAGNOSES: 1. Urinary tract infection. 2. Right hydroureteronephrosis secondary to congenital right UVJ obstruction status post cystoscopy and ureteral stent placement. SECONDARY DIAGNOSES: 1. Hypertension. 2. Hyperlipidemia. 3. Nephrolithiasis. 4. Obstructive sleep apnea. 5. Right inguinal hernia repair. 6. Pelvic relaxation with chronic pessary. 7. Sepsis secondary to urinary tract infection, present on admission. MEDICATION LIST: 1. Vitamin D 1000 units p.o. daily. 2. Hydrochlorothiazide 25 mg p.o. daily. 3. Lisinopril 10 mg p.o. daily. 4. Metoprolol succinate 25 mg p.o. daily. 5. Potassium 1 tablet p.o. daily. New medications: 1. Acetaminophen 650 mg p.o. q.6 hours p.r.n. pain or fever. 2. Cefpodoxime 200 mg p.o. q.12 hours for 10 more days. HOSPITAL COURSE: Mrs. Pablo is an 83-year-old lady with a past medical history as stated above that presented to the emergency room with complaints of urinary frequency, right flank pain for 2 days prior to admission. In the emergency room, the patient had a CT of the abdomen and pelvis that showed severe right hydroureteronephrosis with perinephric and periureteral inflammatory stranding and no obstructing right ureteral stone evident. The hydronephrosis was felt to be stable from a prior CT from November 2017, but stranding was new. There were incidental findings on the CT including a left ovarian lesion that can be further assessed with a pelvic ultrasound and also a chest CT for further assessment given partial visualization of the right middle lobe nodule and those tests can be done as outpatient under Dr. Santana's recommendation. Her urinalysis was also abnormal with 1+ LE, 3+ wbc, 3+ rbc's, and 3+ protein. Please note that at the time of this dictation, her urine and blood cultures are pending and the result needs to be followed as outpatient. The patient was seen in consultation by Urology (Dr. Benavides) and the patient is well known to him since he has followed her for a chronic right UVJ obstruction since the early . He states that this was felt to be congenital and has been managed conservatively. As the patient had presented with a probable UTI, he decided to take her to the OR and she underwent a cystoscopy with right retrograde pyelography and insertion of a right ureteral stent. On the day of discharge, the patient felt much improved. She states that her frequency and flank pain are resolved. Her Padilla catheter was removed and she was able to void spontaneously without symptoms. The case was discussed with Dr. Benavides and he was in agreement with the patient's discharge today with antibiotics. He will follow her urine culture result as outpatient and decide if she will need a longer course as he plans to remove the stent with antibiotics on board. Dr. Benavides also felt that the patient's pessary could be contributing to her right hydroureteronephrosis. On admission, the patient had mild lactic acid elevation, but I do not think this represents severe sepsis/organ dysfunction. It is probably secondary to dehydration and does not represent severe sepsis. The patient is medically stable. She will be discharged home today to follow up with Dr. Santana and Dr. Benavides as outpatient. PHYSICAL EXAMINATION: Vital Signs: Temperature 97.6, heart rate is 74, respiratory rate is 18, oxygen saturation 95% on room air, blood pressure is 134 /58. General: The patient is a pleasant elderly lady, sitting up in the bed, in no acute distress. CVS: Normal S1, S2. Regular rate and rhythm. Chest: Breath sounds present bilaterally with no added sounds. Abdomen is soft, obese , nontender, nondistended. Bowel sounds are present. Neuro: She is alert and oriented x3, able to move all 4 extremities. DIET: Heart healthy diet. ACTIVITIES: As tolerated. DISPOSITION: To home. STATUS WHILE IN THE HOSPITAL: Observation. CONDITION AT TIME OF DISCHARGE: Fair. Please note that the patient will need followup studies for the incidental finding of a left ovarian lesion (pelvic ultrasound) and for her right middle lobe nodule (chest CT). Please keep in mind that this is a summarized version of this patient's hospital stay. If you need more information, please feel free to call me at or please obtain full medical records. TIME SPENT: Approximately 45 minutes were spent to complete this discharge. [id number]/[facility] #: [id number] DIETER
== END 2018-07-13 12:20 | disposition home or self-care (01) ==
LOC: ED 09:40 → MED 14:43 → MEDTELE 19:36 → MED 19:42
PROVIDERS: ADMIT Internal Medicine; ATTEND Internal Medicine
DX: N39.0 Urinary tract infection, site not specified (principal); N13.30 Unspecified hydronephrosis; N13.5 Crossing vessel and stricture of ureter without hydronephrosis; I10 Essential (primary) hypertension; E78.5 Hyperlipidemia, unspecified; N20.0 Calculus of kidney; G47.33 Obstructive sleep apnea (adult) (pediatric); K40.90 Unilateral inguinal hernia, without obstruction or gangrene, not specified as recurrent; N81.89 Other female genital prolapse; Z79.82 Long term (current) use of aspirin
CPT/HCPCS: 36415; 74176; 74420; 80048; 80053; 81003; 81015; 83605; 83690; 83735; 85025; 86140; 87040; 87086; 96365; 96372; 96375; 99284; A9270-GY; C1876; G0378; J0696; J1100; J1644; J2250; J2405; J2543; J2704; J3010

== ENCOUNTER → 2018-08-30 05:41 | Day surgery (SDC) | payer MEDICARE, OTHER ==
--- NOTE | 2018-08-23 08:30 | HP ---
CC: Dr. Saurav Santana * HISTORY AND PHYSICAL: DATE OF PLANNED ADMISSION AND SURGERY: 08/30/18 HISTORY OF PRESENT ILLNESS: Ms. Pablo is an 83-year-old white female who is admitted with right hydronephrosis, right ureteral obstruction, status post placement of a right ureteral stent for cystoscopy, right ureteroscopy, balloon dilation of ureteral stricture, and right ureteral stent exchange. I have been following Ms. Pablo for many years because of chronic right hydroureteronephrosis secondary to congenital right ureterovesical junction obstruction. The condition was diagnosed in 1991 and because it was asymptomatic did not require any treatment. She was continued to be followed conservatively until about 7 weeks ago when she presented to the emergency room with low-grade fever, right flank pain radiating to the right lower quadrant. In the emergency room, she had an elevated white count, infected urine, elevated C-reactive protein, and slight elevation of the lactic acid. Because of concern there was an associated right pyelonephritis, she had urgent cystoscopy for Rt stent placement. The retrograde pyelography showed severe hydroureter with significant degree of tortuosity and severe right hydronephrosis. Because of a 360 degree loop of the proximal ureter, there was difficulty placing the stent, but was successfully done and the right kidney was drained. The patient did well postoperatively, was placed on antibiotics, and discharged home on oral antibiotics with resolution of her symptoms. Because of concern about recurrence of the infection and if the stent is removed , the patient now is admitted for balloon dilation of the distal right ureter with ureteroscopy and stent exchange. PAST MEDICAL HISTORY AND SYSTEM REVIEW: The patient has hypertension and is maintained on metoprolol 25 mg daily, lisinopril 10 mg daily, and hydrochlorothiazide 25 mg daily. She has hyperlipidemia. She has sleep apnea. She was diagnosed with right bundle-branch block in 2010 and has been asymptomatic and not treated. She is known to have cholelithiasis and did not require any surgery. She has history of pelvic relaxation and had a pessary placed. Because of concern that the pessary was worsening the obstruction of the distal right ureter, Dr. Whatley, her java support engineer, removed the pessary recently and did not have it reinserted. The patient is a nonsmoker and denies any alcohol intake or any drug use. She reports being allergic to SULFA DRUG, which gives her a rash. She has no other allergies to medications. PHYSICAL EXAMINATION GENERAL: She is a pleasant elderly lady who looks her age. VITAL SIGNS: Blood pressure 130/80, pulse of 76. LUNGS: Clear. HEART: Regular and rhythmic. No murmurs. ABDOMEN: Soft. No masses. No tenderness and no CVA tenderness. IMPRESSION: Chronic right hydroureteronephrosis secondary to congenital ureterovesical junction obstruction, status post placement right ureteral stent for urinary tract infection and suspected right pyelonephritis and early urosepsis. PLAN: Plan is for cystoscopy, right ureteroscopy, balloon dilation of the distal right ureter and right ureteral stent exchange. I discussed the above plans with the patient and her and all their questions were answered. [id number]/CPS #: [id number] DIETER
[~2018-08-30 05:41] MED LIST changes: -Buffered Lidocaine 0.9% SYRIN* 5 ML/SYR SYRINGE INTRADERM ONE; +Buffered Lidocaine 1% SYRIN* 1 ML/SYRINGE INTRADERM ONE; +Dexamethasone IV* 4 MG/ML 1 ML (4 MG) ONE; +DiMENhydriNATE IV* 50 MG/ML VIAL IV PUSH PRN; +EPHEDrine (Pressors)* 50 MG/ML VIAL ONE; +Famotidine IV* 10 MG/ML 2 ML (20 mg) ONE; +Iohexol 180 (CONTRAST) 10 ML SDV IV ONE; +Ketorolac INJ* 30 MG/ML 1 ML VIAL ONE; +Lidocaine 2% PF * 5 ML VIAL ONE; +Naloxone* 0.4 MG/ML 1 ML VIAL IV PRN; +Ondansetron INJ* 2 MG/ML VIAL ONE; +Propofol* 10 MG/ML 20 ML BTL ONE; +cefTRIAXone(*) 2 GM ADDV.VIAL IVPB ONE; +fentaNYL* 50 MCG/ML 2 ML VIAL (100 MCG VIAL) IV PRN; +fentaNYL* 50 MCG/ML 2 ML VIAL (100 MCG VIAL) ONE
[2018-08-30 10:25] VITALS: BP 149/72
--- NOTE | 2018-08-30 10:36 | OP ---
CC: Dr. Saurav Santana* OPERATIVE REPORT: DATE OF OPERATION: 08/30/18 - [facility] DATE OF : 33 SURGEON: Juan Manuel Benavides MD ANESTHESIOLOGIST: Dr. Jose De Jesus Steele. ANESTHESIA: General. PRE-OP DIAGNOSES: 1. Severe right hydroureteronephrosis. 2. Rule out right ureterovesical junction obstruction. 3. Status post placement right ureteral stent. POST-OP DIAGNOSES: 1. Right hydroureteronephrosis. 2. Right Megaureter. 3. No evidence of anatomical obstruction of ureter. OPERATIVE PROCEDURE: 1. Cystoscopy. 2. Right ureteroscopy. 3. Balloon dilation of distal right ureter. 4. Right ureteral stent exchange (8 Tunisian, 32 cm). INDICATION FOR PROCEDURE: Mrs. Pablo is an 83-year-old white female who was diagnosed back in 1991 as having asymptomatic right hydroureteronephrosis with dilatation of the ureter all the way to the right ureterovesical junction. The patient was asymptomatic and the condition was assumed to be secondary to congenital right ureterovesical junction obstruction. She was observed and did not require any treatment. The patient had developed a pelvic relaxation and had a pessary in place. She presented about 7 weeks ago with right flank pain, urinary tract infection, and there was a concern that she is starting to go into urosepsis from a dilated infected right kidney. She had a cystoscopy and urgent placement of right ureteral stent. At that time, there was marked dilatation of the right ureter with tortuosity and hydronephrosis. The stent was placed successfully. The patient responded well to the antibiotic treatment. Since that time, the pessary had been removed. The patient now is admitted for right ureteroscopy, stent exchange, and evaluation of the cause of the hydroureteronephrosis. Pathology: at cystoscopy there was a significant cystocele noted. The bladder mucosa looked normal. The distal limb of the stent was seen coming from the right ureteral orifice. There was expected edema of the mucosa from the stent irritation. At right ureteroscopy, there was no evidence of any anatomical obstruction. The uterovesical junction was patulous. Balloon dilation of the distal ureter and the right ureterovesical junction showed no obstruction and no waisting. There was still significant dilation of the ureter with 360-degree loop of the proximal ureter distal to the ureteropelvic junction. The degree of dilatation of the ureter is much improved compared to the initial retrograde 7 weeks ago. DESCRIPTION OF PROCEDURE: After successful general anesthesia, the patient was placed in the lithotomy position and was prepped and draped for a cystoscopy. Cystoscopy was performed. The bladder was inspected and the above findings were noted. The distal limb of the stent was pulled out to the level of the urethral meatus and a guidewire was introduced into the lumen of the stent and positioned in the renal pelvis. Again was noted the 360-degree loop of the proximal ureter from the chronic dilation. The size 6.5 semirigid ureteroscope was then introduced inside the bladder and then passed inside the right ureter. There was no evidence of any stricture noted. The ureter was markedly dilated and tortuous. The cystoscope was then re-introduced inside the bladder over the guidewire. Balloon dilator was then fed over the guidewire and positioned in the distal ureter. The balloon was inflated and there was easy inflation and no waisting. The balloon dilator was then removed keeping the guidewire in place. Decision was made to reintroduce a ureteral stent. It was difficult because the stents that were used were too short to navigate the tortuous ureter. Finally, an 8- Tunisian 32 cm stent was successfully positioned with the proximal end coiling in the renal pelvis and the distal end coiling inside the bladder. There was good drainage of contrast from the kidney and no extravasation. The patient tolerated the procedure well and left the operating room in good condition. The plan is to keep the stent in place for about 4 weeks. It will be removed in the office. The patient is expected to continue to have the right hydronephrosis. This could be secondary to either megaureter or the other possibility is reflux. [id number]/CPS #: [id number] [facility]
== END | disposition home or self-care (01) ==
LOC: OR 05:41
PROVIDERS: ATTEND Urology
DX: N13.30 Unspecified hydronephrosis (principal); N28.82 Megaloureter; N81.10 Cystocele, unspecified; I10 Essential (primary) hypertension; E78.5 Hyperlipidemia, unspecified; Z87.891 Personal history of nicotine dependence; M19.90 Unspecified osteoarthritis, unspecified site
CPT/HCPCS: 74420; C1876; J0696; J1100; J1885; J2405; J2704; J3010